=== PATIENT | female | born 1965 | race Caucasian/White ===

== ENCOUNTER 2019-05-27 11:55 | Emergency (ER) | payer OTHER ==
[2019-05-27] MEDS: LIDOCAINE 2% (MDV) 20 ML INJ INJ (14:37)
== END 2019-05-27 15:37 | disposition home or self-care (01) ==
LOC: FTE 15:37
DX: S62.616A Displaced fracture of proximal phalanx of right little finger, initial encounter for closed fracture (principal); E11.9 Type 2 diabetes mellitus without complications; W18.39XA Other fall on same level, initial encounter; Y92.9 Unspecified place or not applicable
CPT/HCPCS: 12001; 73130-RT; 99283-25